=== PATIENT | female | born 1955 | race Caucasian/White ===

== ENCOUNTER 2020-10-07 09:54 | Emergency (ER) | payer BC ==
[2020-10-07 10:53] VITALS: BP 182/94; PULSE 80
--- NOTE | 2020-10-07 11:18 | EDM.PDOC ---
ED HPI GENERAL MEDICAL PROBLEM - General Chief Complaint: Cardiovascular Problem Stated Complaint: CHEST PAIN Time Seen by Provider: 10/07/20 10:30 Source of Information: Reports: Patient History Limitations: Reports: No Limitations - History of Present Illness INITIAL COMMENTS - FREE TEXT/NARRATIVE: 65-year-old female with known hypertension, had a normal stress test within the last year but has had 2 episodes of chest pain over the past 4 days. 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 She sat down and it resolved within 2 minutes, she did not feel short of breath, diaphoretic, nausea or other symptoms. Today while at a computer she had another episode of substernal tightness, again radiating some weakness to both shoulders and arms but after she sat back and took a few breaths it resolved within 2 minutes. She figured she better come in and have it checked out. She is hypertensive with a systolic of 185/89, and a normal sinus rhythm. She has no symptoms currently. Onset: Sudden Duration: Minutes: (Symptoms last just 1 to 2 minutes) Location: Reports: Chest (Substernal radiating to both arms) Improves with: Reports: Other (Just a brief rest and the symptoms resolved) Worsens with: Reports: None Associated Symptoms: Reports: Other (Only other symptom is bilateral arm weakness) Denies Pain Score (Numeric/FACES): 0 - Related Data Allergies Allergy/AdvReac Type Severity Reaction Status Date / Time timolol maleate Allergy Respiratory Verified 10/07/20 10:10 [From Timoptic] Distress Home Meds: Home Meds Bimatoprost [Lumigan 0.03% Oph Soln] 1 drop EYELF DAILY 01/16/15 [History] Ibuprofen 1 tab PO Q8H PRN 01/16/15 [History] Metoprolol Succinate [Toprol XL] 50 mg PO BID 01/16/15 [History] Levothyroxine [Synthroid] 88 mcg PO DAILY 10/07/20 [History] Losartan Potassium [Cozaar] 50 mg PO DAILY 10/07/20 [History] Past Medical History Cardiovascular History: Reports: Hypertension 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: Musculoskeletal History: Reports: Fracture Other Musculoskeletal History: fx Endocrine/Metabolic History: Reports: Hypothyroidism - Infectious Disease History Infectious Disease History: Reports: Chicken Pox, Measles, Mumps - Past Surgical History HEENT Surgical History: Reports: Cataract Surgery Musculoskeletal Surgical History: Reports: Knee Replacement Social & Family History - Tobacco Use Tobacco Use Status *Q: Never Tobacco User - Caffeine Use Caffeine Use: Reports: Coffee - Alcohol Use Days Per Week of Alcohol Use: 1 Number of Drinks Per Day: 3 Total Drinks Per Week: 3 - Recreational Drug Use Recreational Drug Use: No ED ROS GENERAL - Review of Systems Review Of Systems: See Below Constitutional: Denies: Fever, Chills HEENT: Reports: No Symptoms Respiratory: Denies: Shortness of Breath, Pleuritic Chest Pain Cardiovascular: Reports: Chest Pain. Denies: Palpitations GI/Abdominal: Denies: Abdominal Pain, Nausea, Vomiting Musculoskeletal: Reports: No Symptoms Skin: Reports: No Symptoms. Denies: Diaphoresis Neurological: Reports: Weakness (Weakness in her shoulders and arms that resolved quickly) Psychiatric: Reports: No Symptoms ED EXAM, GENERAL - Physical Exam Exam: See Below Exam Limited By: No Limitations General Appearance: Alert, No Apparent Distress Eye Exam: Bilateral Eye: Normal Inspection Head: Atraumatic Respiratory/Chest: No Respiratory Distress, Lungs Clear Cardiovascular: Regular Rate, Rhythm. No: Tachycardia, Extra Beats GI/Abdominal: Normal Bowel Sounds, Soft, Non-Tender Extremities: Normal Inspection. No: Pedal Edema Neurological: Alert, Oriented, No Motor/Sensory Deficits Psychiatric: Normal Affect, Normal Mood Skin Exam: Warm, Dry Course - Vital Signs Last Recorded V/S: Last Vital Signs Temp 97.9 F 10/07/20 10:52 Pulse 80 10/07/20 10:52 Resp 22 H 10/07/20 10:52 BP 182/94 H 10/07/20 10:52 Pulse Ox 97 10/07/20 10:52 - Orders/Labs/Meds Labs: Laboratory Tests 10/07/20 10/07/20 Range/Units 10:38 10:38 WBC 7.1 (4.5-11.0) K/uL RBC 4.48 (3.30-5.50) M/uL Hgb 13.3 (12.0-15.0) g/dL Hct 42.3 (36.0-48.0) % MCV 94 (80-98) fL MCH 30 (27-31) pg MCHC 31 L (32-36) % Plt Count 312 (150-400) K/uL Neut % (Auto) 57 (36-66) % Lymph % (Auto) 27 (24-44) % Steele % (Auto) 10 H (2-6) % Eos % (Auto) 6 H (2-4) % Baso % (Auto) 1 (0-1) % Sodium 143 (140-148) mmol/L Potassium 4.2 (3.6-5.2) mmol/L Chloride 106 (100-108) mmol/L Carbon Dioxide 26 (21-32) mmol/L Anion Gap 10.7 (5.0-14.0) mmol/L BUN 20 H (7-18) mg/dL Creatinine 0.9 (0.6-1.0) mg/dL Est Cr Clr Drug Dosing 65.99 mL/min Estimated GFR (MDRD) > 60 (>60) Glucose 95 (74-106) mg/dL Calcium 8.9 (8.5-10.1) mg/dL Troponin I < 0.017 (0.000-0.056) ng/mL TSH, Ultra Sensitive 4.163 H (0.358-3.740) uIU/mL - Re-Assessments/Exams Free Text/Narrative Re-Assessment/Exam: 10/07/20 11:17 monitor technician shows normal sinus rhythm. She will be kept on the monitor, CBC CMP troponin and TSH were obtained. 10/07/20 11:23 TSH returned just over 4, CBC CMP were reassuring and troponin was 0. She had no symptoms while in the emergency room and remained in sinus rhythm. I suspect she was having esophageal spasm and will recommend a daily Prilosec for 2 to 4 weeks and discuss another stress test with her primary provider in the next few days and patient agreed. She will return if chest pain recurs and is persistent. Departure - Departure Time of Disposition: 11:36 Disposition: Home, Self-Care 01 Clinical Impression: Chest pain, atypical Instructions: Nonspecific Chest Pain, Adult, [id number] Referrals: Katia Pastor PA-C [Primary Care Provider] - Forms: ED Department Discharge Care Plan Goals: Consider daily omeprazole for 2 to 4 weeks, and discuss a stress test with your primary provider in the near future. Return to the emergency room at any time if chest pain recurs and is persistent for more than 5 to 10 minutes. Especially if accompanied by shortness of breath or radiation of pain into the shoulder or jaw. Sepsis Event Note (ED) - Evaluation Sepsis Screening Result: No Definite Risk - Focused Exam Vital Signs: Vital Signs Temp Pulse Resp BP Pulse Ox 10/07/20 10:52 97.9 F 80 22 H 182/94 H 97 10/07/20 10:23 98 F 86 22 H 185/89 H 97 10/07/20 10:21 98 F 86 22 H 185/89 H 97
== END 2020-10-07 11:36 | disposition home or self-care (01) ==
LOC: JP.ED 09:54
DX: R07.89 Other chest pain (principal); E03.9 Hypothyroidism, unspecified; I10 Essential (primary) hypertension; Z88.8 Allergy status to other drugs, medicaments and biological substances; Z79.899 Other long term (current) drug therapy
CPT/HCPCS: 36415; 80048; 84443; 84484; 85025; 99284

== ENCOUNTER 2021-02-11 17:18 | Emergency (ER) | payer BC ==
--- NOTE | 2021-02-11 18:20 | EDM.PDOC ---
ED HPI GENERAL MEDICAL PROBLEM - General Chief Complaint: General Stated Complaint: HIGH B.P. Time Seen by Provider: 02/11/21 18:00 Source of Information: Reports: Patient History Limitations: Reports: No Limitations - History of Present Illness INITIAL COMMENTS - FREE TEXT/NARRATIVE: 65-year-old female who is under an intense amount of stress over the past several weeks, her significant other just returned from heart surgery who she is caring for, also getting up at 5 AM and driving 80 miles to work and getting home in the evening and then taking care of her recent surgical partner. Today she got up and felt lightheaded, dizzy, nausea and just general malaise so took her blood pressure and it was elevated with a systolic of over 180. This is unusual for her but she could not remember if she took her blood pressure medicine today so she took both and 45 minutes later she did not feel better so she came in to be checked. She has no pain, no shortness of breath, no palpitations, just generalized malaise and fatigue. She is fully vaccinated against Covid. She arrives with a blood pressure of 177/84, normal oxygen, regular rhythm and just appears tired. Onset: Sudden (Symptoms started fairly suddenly about 2 hours ago) Location: Reports: Generalized (Weakness and dizziness) Associated Symptoms: Reports: Malaise, Other (Mild nausea no vomiting). Denies: Confusion, Chest Pain, Cough, Diaphoresis, Fever/Chills, Headaches, Loss of Appetite, Shortness of Breath - Related Data Allergies Allergy/AdvReac Type Severity Reaction Status Date / Time timolol maleate Allergy Respiratory Verified 02/11/21 17:51 [From Timoptic] Distress Home Meds: Home Meds Bimatoprost [Lumigan 0.03% Ophth Soln] 1 drop EYELF DAILY 01/16/15 [History] Ibuprofen 1 tab PO Q8H PRN 01/16/15 [History] Levothyroxine [Synthroid] 88 mcg PO DAILY 10/07/20 [History] Losartan Potassium [Cozaar] 50 mg PO DAILY 10/07/20 [History] Metoprolol Tartrate 25 mg PO BID 02/11/21 [History] Past Medical History HEENT History: Reports: Cataract, Glaucoma Cardiovascular History: Reports: Hypertension 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: Musculoskeletal History: Reports: Fracture Other Musculoskeletal History: fx Endocrine/Metabolic History: Reports: Hypothyroidism - Infectious Disease History Infectious Disease History: Reports: Chicken Pox, Measles, Mumps - Past Surgical History HEENT Surgical History: Reports: Cataract Surgery Musculoskeletal Surgical History: Reports: Knee Replacement Social & Family History - Tobacco Use Tobacco Use Status *Q: Never Tobacco User - Caffeine Use Caffeine Use: Reports: Coffee - Recreational Drug Use Recreational Drug Use: No ED ROS GENERAL - Review of Systems Review Of Systems: See Below Constitutional: Reports: Malaise. Denies: Fever, Chills HEENT: Denies: Vision Change Respiratory: Denies: Shortness of Breath, Cough Cardiovascular: Denies: Chest Pain, Dyspnea on Exertion, Palpitations Endocrine: Reports: Fatigue GI/Abdominal: Reports: Nausea. Denies: Abdominal Pain, Constipation, Diarrhea, Vomiting : Reports: No Symptoms Musculoskeletal: Reports: No Symptoms Skin: Denies: Pallor, Diaphoresis Neurological: Reports: Dizziness, Weakness. Denies: Headache Psychiatric: Reports: No Symptoms ED EXAM, GENERAL - Physical Exam Exam: See Below Exam Limited By: No Limitations General Appearance: Alert, No Apparent Distress Eye Exam: Bilateral Eye: Normal Inspection (No nystagmus) Head: Atraumatic Neck: Supple, Non-Tender Respiratory/Chest: No Respiratory Distress, Lungs Clear Cardiovascular: Regular Rate, Rhythm. No: Extra Beats Extremities: Normal Inspection. No: Pedal Edema Neurological: Alert, Oriented, No Motor/Sensory Deficits, Other (Romberg was negative, no pronator drift) Psychiatric: Normal Affect, Normal Mood Skin Exam: Warm, Dry Course - Vital Signs Last Recorded V/S: Last Vital Signs Temp 97.7 F 02/11/21 17:50 Pulse 78 02/11/21 18:05 Resp 16 02/11/21 17:50 BP 168/88 H 02/11/21 18:05 Pulse Ox 95 02/11/21 18:05 - Orders/Labs/Meds Labs: Laboratory Tests 02/11/21 02/11/21 02/11/21 Range/Units 18:15 18:15 18:17 WBC 6.7 (4.5-11.0) K/uL RBC 4.65 (3.30-5.50) M/uL Hgb 14.1 (12.0-15.0) g/dL Hct 43.7 (36.0-48.0) % MCV 94 (80-98) fL MCH 30 (27-31) pg MCHC 32 (32-36) % Plt Count 274 (150-400) K/uL Neut % (Auto) 67 H (36-66) % Lymph % (Auto) 23 L (24-44) % [place] % (Auto) 7 H (2-6) % Eos % (Auto) 3 (2-4) % Baso % (Auto) 0 (0-1) % Sodium 145 (140-148) mmol/L Potassium 4.3 (3.6-5.2) mmol/L Chloride 105 (100-108) mmol/L Carbon Dioxide 23 (21-32) mmol/L Anion Gap 16.6 H (5.0-14.0) mmol/L BUN 27 H (7-18) mg/dL Creatinine 0.9 (0.6-1.0) mg/dL Est Cr Clr Drug Dosing 63.70 mL/min Estimated GFR (MDRD) > 60 (>60) Glucose 122 H (74-106) mg/dL Calcium 9.5 (8.5-10.1) mg/dL Total Bilirubin 0.5 (0.2-1.0) mg/dL AST 15 (15-37) U/L ALT 26 (12-78) U/L Alkaline Phosphatase 102 (46-116) U/L Troponin I < 0.017 (0.000-0.056) ng/mL Total Protein 7.1 (6.4-8.2) g/dL Albumin 4.0 (3.4-5.0) g/dL Globulin 3.1 (2.3-3.5) g/dL Albumin/Globulin Ratio 1.3 (1.2-2.2) Urine Color Yellow (YELLOW) Urine Appearance Slightly cloudy A (CLEAR) Urine pH 5.5 (5.0-8.0) Ur Specific [place] >= 1.030 (1.008-1.030) Urine Protein Negative (NEGATIVE) mg/dL Urine Glucose (UA) Negative (NEGATIVE) mg/dL Urine Ketones 15 H (NEGATIVE) mg/dL Urine Occult Blood Trace-intact H (NEGATIVE) Urine Nitrite Negative (NEGATIVE) Urine Bilirubin Negative (NEGATIVE) Urine Urobilinogen 0.2 (0.2-1.0) EU/dL Ur Leukocyte Esterase Negative (NEGATIVE) Urine RBC Not seen (0-5) Urine WBC 0-5 (0-5) Ur Epithelial Cells Moderate Amorphous Sediment Few Urine Bacteria Moderate Urine Mucus Numerous - Re-Assessments/Exams Free Text/Narrative Re-Assessment/Exam: 02/11/21 18:19 CBC, CMP, troponin and UA were obtained and the patient will be allowed to rest in the exam room, likely will improve by the time the labs return. Departure - Departure Time of Disposition: 19:18 Disposition: Home, Self-Care 01 Clinical Impression: Dehydration, Dizziness, Essential hypertension - Discharge Information Instructions: Dizziness, [id number] Referrals: Katia Pastor PA-C [Primary Care Provider] - Forms: ED Department Discharge Care Plan Goals: Rest tonight, continue your regular medications and use Zofran for nausea as needed. Push fluids, it is important to stay hydrated. Return anytime if you develop other concerns or new symptoms that need further evaluation. Sepsis Event Note (ED) - Evaluation Sepsis Screening Result: No Definite Risk - Focused Exam Vital Signs: Vital Signs Temp Pulse Resp BP Pulse Ox 02/11/21 18:05 78 168/88 H 95 02/11/21 17:50 97.7 F 83 16 177/84 H 98 02/11/21 17:39 97.7 F 83 16 177/84 H 98
[2021-02-11 18:35] VITALS: BP 168/88; PULSE 78
== END 2021-02-11 19:18 | disposition home or self-care (01) ==
LOC: JP.ED 17:18
DX: R42 Dizziness and giddiness (principal); E86.0 Dehydration; I10 Essential (primary) hypertension; E03.9 Hypothyroidism, unspecified; Z79.899 Other long term (current) drug therapy; Z88.8 Allergy status to other drugs, medicaments and biological substances
CPT/HCPCS: 36415; 80053; 81001; 84484; 85025; 99284